=== PATIENT | female | born 1980 | race Caucasian/White ===

== ENCOUNTER 2019-11-18 16:35 | Emergency (ER) | payer OTHER ==
[2019-11-18] MEDS ORDERED: Ketorolac Tromethamine 30 MG/ML VIAL ONE (18:32)
[2019-11-18] MEDS ORDERED: Metoclopramide HCl 10 MG/2 ML VIAL ONE ×2 (18:32→21:36)
[2019-11-18] MEDS ORDERED: Magnesium 2 GM/50 ML BAG (IN WATER) ONE (18:32)
[2019-11-18] MEDS ORDERED: diphenhydrAMINE 50 MG/ML VIAL ONE ×3 (18:32→21:36)
[2019-11-18] MEDS ORDERED: methylPREDNISolone Sod Succ/PF 125 MG/2 ML VIAL ONE (18:32)
[2019-11-18 19:36] LABS: #Basophils 0.1 thou/uL (0.0-0.2); #Eosinphils 0.4 thou/uL (0.0-0.7); #Lymphocytes 2.2 thou/uL (1.20-3.40); #Monocytes 0.5 thou/uL (0.11-0.59); #Neutrophils 3.8 thou/uL (1.40-6.50); %Basophils 1.1 % (0.0-1.0); %Eosinophils 5.3 % (0.0-10.0); %Lymphocytes 31.8 % (21.0-51.0); %Monocytes 7.2 % (0.0-10.0); %Neutrophils 54.6 % (42.0-75.0); Hemoglobin 13.1 g/dL (12.0-16.0); Mean Corpuscular HGB CONC 33.4 g/dL (32.0-36.0); Mean Corpuscular Volume 98.7 fL (78.0-98.0); Mean Platelet Volume 8.2 fL (7.4-10.4); Platelet Count 223 thou/uL (130-400); RBC Distribution Width 12.9 % (11.5-14.5); Red Blood Cell (RBC) Count 3.96 mill/uL (4.20-5.40); White Blood Cell (WBC) Count 6.9 thou/uL (4.8-10.8)
--- NOTE | 2019-11-18 19:46 | CT ---
CT OF THE BRAIN WITHOUT CONTRAST: 11/18/19 INDICATION: History of headache. COMPARISON: None. FINDINGS: No acute infarct, hemorrhage, or hydrocephalus is present. Septum pellucidum and third ventricle are midline. Mastoid air cells and paranasal sinuses are clear. Skull is intact. IMPRESSION: No acute intracranial abnormality demonstrated. POS: BH
[2019-11-18 20:13] LABS: ALT (SGPT) 17 U/L (8-55); AST (SGOT) 26 U/L (5-34); Albumin 3.7 g/dL (3.5-5.0); Alkaline Phosphatase 56 U/L (40-110); Anion Gap 13 mmol/L (10-20); BUN (Urea Nitrogen) 13 mg/dL (7.0-18.7); Bilirubin, Total 0.3 mg/dL (0.2-1.2); Calc. Creatinine Clearance 0 mL/min (70-130); Calcium 7.7 mg/dL (7.8-10.44); Carbon Dioxide 15 mmol/L (22-29); Chloride 114 mmol/L (98-107); Estimated GFR-MDRD 86; Globulin 2.1 g/dL (2.4-3.5); Glucose 75 mg/dL (70-105); Magnesium 2.8 mg/dL (1.6-2.6); Potassium 3.8 mmol/L (3.5-5.1); Protein, Total 5.8 g/dL (6.0-8.3); Sodium 138 mmol/L (136-145)
[2019-11-18] MEDS ORDERED: Midazolam HCl 2 mg/2 ml Vial ONE (20:37)
[2019-11-18] MEDS ORDERED: Ketamine 50 MG/ML (10ML VIAL) ONE (21:38)
[2019-11-18 21:48] LABS: Color Of CSF Supernatant COLORLESS (Colorless); Tube # 2; Unspun CSF Color COLORLESS (Colorless)
[2019-11-18 21:59] LABS: CSF Source CSF; Clarity Hazy (Clear); Tube # 4
[2019-11-18 22:06] LABS: CSF RBC Count - Manual 9800 /cu.mm (None Seen); CSF Source CSF; CSF WBC/NonHematics Count-Man 2 /cu.mm (0-5); Clarity Hazy (Clear); Tube # 1
[2019-11-18 22:13] LABS: CSF, Glucose 60 mg/dl (40-70); CSF, Protein 49 mg/dL (15-40)
== END 2019-11-18 23:10 | disposition home or self-care (01) ==
LOC: ERS 16:35
DX: G43.909 Migraine, unspecified, not intractable, without status migrainosus (principal); F41.9 Anxiety disorder, unspecified; Z79.899 Other long term (current) drug therapy
CPT/HCPCS: 36415; 62270; 70450; 80053; 82945; 83735; 84157; 85025; 87070; 87205; 89051; 96365; 96366; 96367; 96368; 96375; 96376; J1200; J1885; J2250; J2765; J2930; J3475

== ENCOUNTER 2020-07-19 14:02 | Emergency (ER) | payer BC ==
[2020-07-19] MEDS ORDERED: diphenhydrAMINE 50 MG/ML VIAL ONE ×2 (16:04→17:16)
[2020-07-19] MEDS ORDERED: Acetaminophen 500 MG TAB ONE (16:04)
[2020-07-19] MEDS ORDERED: Metoclopramide HCl 10 MG/2 ML VIAL ONE (16:04)
[2020-07-19] MEDS ORDERED: Magnesium 2 GM/50 ML BAG (IN WATER) ONE (17:16)
[2020-07-19] MEDS ORDERED: Ketorolac Tromethamine 30 MG/ML VIAL ONE (17:16)
[2020-07-19] MEDS ORDERED: Promethazine 25 MG TAB ONE (19:13)
== END 2020-07-19 19:19 | disposition home or self-care (01) ==
LOC: ERS 14:02
DX: G43.909 Migraine, unspecified, not intractable, without status migrainosus (principal); Z79.899 Other long term (current) drug therapy
CPT/HCPCS: 87635; 96365; 96366; 96375; 96376; J1200; J1885; J2765; J3475; Q0169; U0003; U0005